=== PATIENT | female | born 1990 ===

== ENCOUNTER 2018-08-19 16:28 | Emergency (ER) | payer MEDICAID ==
[2018-08-19 16:28] VITALS: BMI 29.9
[2018-08-19 16:55] VITALS: TEMP 97.9
[2018-08-19 17:35] LABS: BASO # 0.1 K/uL (0.0-0.2); BASO % 0.5 % (0.0-2.0); EOS # 0.1 K/uL (0.0-0.7); EOS % 0.8 % (0.0-4.0); HEMOGLOBIN 13.6 g/dL (11.0-16.0); LYMPH # 1.7 K/uL (1.0-4.3); LYMPH % 16.7 % (20.0-40.0); MEAN CELL VOLUME 84.3 fL (81.0-99.0); MEAN CORPUSCULAR HEMOGLOBIN 27.3 pg (27.0-31.0); MEAN CORPUSCULAR HGB CONC 32.4 g/dL (33.0-37.0); MEAN PLATELET VOLUME 8.4 fL (7.2-11.7); MONO # 0.7 K/uL (0.0-0.8); MONO % 6.4 % (0.0-10.0); NEUT # 7.8 K/uL (1.8-7.0); NEUT % 75.6 % (50.0-75.0); RBC 4.98 Mil/uL (3.80-5.20); WHITE BLOOD COUNT 10.4 K/uL (4.8-10.8)
[2018-08-19 17:41] LABS: SQUAMOUS EPITHIAL 1 /hpf (0-5); URINE BACTERIA OCC (<OCC); URINE BILIRUBIN NEGATIVE (NEGATIVE); URINE BLOOD NEGATIVE (NEGATIVE); URINE CLARITY Clear (Clear); URINE COLOR Yellow (YELLOW); URINE GLUCOSE (UA) NORMAL (Normal); URINE LEUKOCYTE ESTERASE 3+ Leu/uL (Negative); URINE PROTEIN NEGATIVE (NEGATIVE); URINE UROBILINOGEN NORMAL mg/dL (0.2-1.0)
[2018-08-19 17:42] LABS: HCG,QUALITATIVE URINE NEGATIVE (NEGATIVE)
[2018-08-19 17:53] LABS: BARBITURATES, UR NEGATIVE (NEGATIVE); BENZODIAZEPINES, UR NEGATIVE (NEGATIVE); OPIATES, UR NEGATIVE (NEGATIVE); PHENCYCLIDINE, UR NEGATIVE (NEGATIVE)
[2018-08-19 17:59] LABS: ALB/GLOB RATIO 1.5 (1.0-2.1); ALBUMIN 4.4 g/dL (3.5-5.0); ALT/SGPT 19 U/L (9-52); AST/SGOT 19 U/L (14-36); BLOOD UREA NITROGEN 13 mg/dL (7-17); CALCIUM 8.9 mg/dl (8.6-10.4); GFR NON-AFRICAN AMERICAN > 60
--- NOTE | 2018-08-19 18:24 | C.PDOC ---
History Of Present Illness 28 y/o female comes in complaining of a mild headache and dizziness since earlier today. Patient reports it is positional, better when she is holding still, but worse when moving around. Patient has 4 young children at home, none are sick. Denies any chest pain, SOB, fever, or chills. Time Seen by Provider: 08/19/18 17:14 Chief Complaint (Nursing): Dizziness/Lightheaded History Per: Patient History/Exam Limitations: no limitations Onset/Duration Of Symptoms: Hrs Current Symptoms Are (Timing): Still Present Past Medical History Reviewed: Historical Data, Nursing Documentation, Vital Signs Vital Signs: Last Vital Signs Temp 97.9 F 08/19/18 16:52 Pulse 74 08/19/18 16:52 Resp 19 08/19/18 16:52 BP 119/82 08/19/18 16:52 Pulse Ox 99 08/19/18 16:52 Family History: States: No Known Family Hx - Social History Hx Tobacco Use: No Hx Alcohol Use: No Hx Substance Use: No - Immunization History Hx Tetanus Toxoid Vaccination: (unk) Hx Influenza Vaccination: No Hx Pneumococcal Vaccination: No Review Of Systems Except As Marked, All Systems Reviewed And Found Negative. Constitutional: Negative for: Sweats Cardiovascular: Negative for: Chest Pain, Palpitations Respiratory: Negative for: Shortness of Breath Gastrointestinal: Negative for: Vomiting Neurological: Positive for: Headache, Dizziness Physical Exam - Physical Exam Appears: Non-toxic, No Acute Distress Skin: Warm, Dry Head: Atraumatic, Normacephalic Eye(s): bilateral: PERRL, EOMI Nose: Other (increased nasal passage erythema) Oral Mucosa: Moist Neck: Supple Cardiovascular: Rhythm Regular, No Murmur Respiratory: Normal Breath Sounds, No Rales, No Rhonchi, No Wheezing Gastrointestinal/Abdominal: Soft, No Tenderness Extremity: Bilateral: Atraumatic, Normal Color And Temperature, Normal ROM Neurological/Psych: Oriented x3, Normal Speech, Normal Cognition Gait: Steady ED Course And Treatment - Laboratory Results Result Diagrams: 08/19/18 17:31 08/19/18 17:31 Lab Interpretation: Normal (ua neg. tox neg) Urine POC: Negative O2 Sat by Pulse Oximetry: 99 (RA) Pulse Ox Interpretation: Normal Reevaluation Time: 18:24 Reassessment Condition: Improved Medical Decision Making Medical Decision Making: Plan: --Labs --UA --Motrin PO --Sudafed PO nasal congestion provoking positional vertigo improved with pseudafed and motrin Disposition Doctor Will See Patient In The: Office Counseled Patient/Family Regarding: Studies Performed, Diagnosis - Disposition Referrals: Nurse Coordinator Service [Outside] [facility] [Outside] [facility] [Outside] [facility]. [facility] [Outside] Disposition: HOME/ ROUTINE Disposition Time: 18:25 Condition: GOOD Additional Instructions: congestion nasal: Sigue pseudafed 30 mg cada 6 horas Flonase espray esteroidal 1 espray cada lado del nariz cada 12 horas sigue con [facility] necessario Instructions: Vertigo (a Type of Dizziness), Sinus Headache (DC) Forms: [employer] ([place] Citizen) Print Language: UKRAINIAN - Clinical Impression Clinical Impression: Dizziness - Scribe Statement The provider has reviewed the documentation as recorded by the Kainibdenia Haro Provider Attestation: All medical record entries made by the Josephine were at my direction and personally dictated by me. I have reviewed the chart and agree that the record accurately reflects my personal performance of the history, physical exam, medical decision making, and the department course for this patient. I have also personally directed, reviewed, and agree with the discharge instructions and disposition.
[2018-08-19 18:44] VITALS: BP 114/83; PULSE 77; RESP 18
[2018-08-19 20:01] VITALS: O2SAT 99
== END 2018-08-19 18:49 | disposition home or self-care (01) ==
LOC: C.ER 16:28
DX: R42 Dizziness and giddiness (principal)
CPT/HCPCS: 80053; 81001; 82948; 84703; 85025; 99285; G0480